=== PATIENT | male | born 1950 | race Caucasian/White ===

== ENCOUNTER → 2017-10-13 | Outpatient (CLI) | payer OTHER ==
--- NOTE | 2017-10-13 18:04 | CONS ---
CONSULTATION REASON FOR CONSULTATION: Sleep apnea. This is a pleasant 67-year-old male patient was sent over to [facility] to be worked up for sleep apnea. The patient has minimal soft snoring specially when he is on his back. He has been having chronic fatigue and muscle pain during the day. He thinks his sleep fragmentation is essentially related to pain. The patient is being worked up for fibromyalgia and has chronic body aches involving the large joints, neck and back. He wakes up constantly in the middle of the night due to pain. He sleeps better if he takes Tylenol arthritis. He is waking up tired during the day. He goes to bed around 8:30 p.m. and wakes up at 4 a.m. in the morning. He averages 4 to 5 hours of sleep. At times, he gets up in the middle of night to go to the bathroom. No grinding of the teeth. No restlessness in the lower extremities. No gasping for air. No witnessed apneas. No alcohol, no substance abuse. No head trauma. Crowder score is at 3. No falling asleep while driving or operating vehicles. He has been losing weight and has lost approximately 20 pounds since assisted. PAST MEDICAL HISTORY: 1. Chronic pain, under investigation. Possible fibromyalgia. 2. Hypertension. 3. Gout. 4. Hyperlipidemia. 5. Acid reflux. 6. Anxiety. PAST SURGICAL HISTORY: Includes tonsillectomy. DRUG ALLERGIES: Not known. He is allergic to DUST AND POLLEN AND MOLD. MEDICATIONS: 1. Xanax 0.25 mg on a p.r.n. basis. 2. Lisinopril 20 mg p.o. daily. 3. Ultram 50 mg as needed for pain control every 8 hours. 4. Allopurinol 100 mg p.o. daily. 5. Norvasc 2.5 mg p.o. daily. 6. Nexium 40 mg p.o. daily. 7. Crestor 10 mg p.o. daily. 8. Flonase as needed. 9. Multivitamin. SOCIAL HISTORY: The patient is a nonsmoker. No history of alcohol, no history of IV drugs. He is retired. FAMILY HISTORY: Negative for sleep apnea. REVIEW OF SYSTEMS: 12-point review of system was done. Positive findings are mentioned above in the history of present illness. No history of insomnia. No history of choking or gasping sensation. No grinding of the teeth. No sleepwalking or dry mouth. No anxiety or panic attacks. No palpitation. No claustrophobia. No sexual dysfunction. No depression. No problems with memory and concentration. PHYSICAL EXAMINATION: BP is 146/82, pulse 82, respirations 16, temperature 97.9 saturation 96% on room air. Weight is 217, height is 5 feet 11 inches, neck size 16-1/2 inches, BMI 29.8. GENERAL APPEARANCE: Calm, comfortable, in no distress. HEAD: Atraumatic, normocephalic. NECK: Supple. There is no JVD. No goiter or neck masses. There is crowding of posterior pharynx with a Mallampati class IV. LUNGS: Clear to auscultation. HEART: Sounds regular rhythm. Normal S1, S2. No S3, S4. No murmurs. ABDOMEN: Soft, nontender. No organomegaly. EXTREMITIES: No edema. No cyanosis or clubbing. NEUROLOGIC: A and O x3. No focal neurological deficits. PSYCHIATRIC: No anxiety or depression. SKIN: Negative for wounds also ulceration. IMPRESSION: 1. Obstructive sleep apnea clinically suspected although my overall suspicion for symptomatic obstructive sleep apnea is low and the patient's sleep fragmentation probably related to chronic arthritic pain. 2. Hypertension. 3. Gout. 4. Hyperlipidemia. 5. Acid reflux. 6. Anxiety. PLAN: Proceed with a home sleep study and decide on treatment accordingly. MMODL / IJN: [id number] /
== END | disposition home or self-care (01) ==
LOC: SLEEP 16:44
PROVIDERS: ATTEND Internal Medicine Critical Care Medicine
DX: I10 Essential (primary) hypertension (principal); M10.9 Gout, unspecified; E78.5 Hyperlipidemia, unspecified; K21.9 Gastro-esophageal reflux disease without esophagitis; F41.9 Anxiety disorder, unspecified; Z79.899 Other long term (current) drug therapy; Z91.09 Other allergy status, other than to drugs and biological substances
CPT/HCPCS: 99211

== ENCOUNTER → 2018-01-12 | Outpatient (CLI) | payer OTHER ==
--- NOTE | 2018-01-12 16:51 | PN ---
PROGRESS NOTE This 67-year-old male patient was referred to me for sleep apnea evaluation. Today, he is coming in to discuss the results of the home sleep study that was conducted on 10/26/2017. In summary the patient was found to have mild OLIVIA with an AHI of 7 and disease was worse in the supine body position. Nevertheless, he claims that he does not sleep on his back. His sleep is fragmented as the patient has chronic pain related to fibromyalgia. He cannot get himself in a comfortable situation. He uses Tylenol arthritis for pain control. His [place] score is only at 3. He snores. However, his snoring is very soft. He did not demonstrate significant nocturnal oxygen desaturation on his home sleep study. PHYSICAL EXAMINATION: BP is 142/81, pulse 88, respirations 16, temperature 98.3 saturation 97% on room air. Weight is 215, height 5 feet 11 inches. General appearance calm and comfortable. Head is atraumatic, normocephalic. NECK: Supple. There is no significant crowding of the posterior pharynx. No goiter or neck masses. LUNGS: Clear to auscultation. HEART: Sounds regular rate and rhythm. Normal S1, S2. No S3, S4. No murmurs. ABDOMEN: Soft, nontender. No organomegaly. EXTREMITIES: No edema. No cyanosis or clubbing. SKIN: Negative for any wounds or ulcerations. NEUROLOGIC: A and O x3. No focal neurological deficits. Psychiatric: The patient has appropriate mood and affect. IMPRESSION: 1. Mild obstructive sleep apnea with an AHI of 7.7, positional worse in the supine body position. 2. Sleep fragmentation related to chronic pain/fibromyalgia. 3. No major hypersomnia. [place] Score is at 4. 4. Hypertension. 5. Gout. 6. Hyperlipidemia. 7. Acid reflux. 8. Generalized anxiety disorder. PLAN: I had a lengthy discussion with the patient. I went over the treatment of mild obstructive sleep apnea including oral appliances and CPAP therapy. He is not interested in CPAP therapy at this point, knowing that he thinks his sleep fragmentation is essentially due to his chronic pain. I recommended him sleeping in a sidewise body position knowing that he has a positional worsening of his OLIVIA. I advised him to lose weight. I asked him to come back to the sleep Center if his condition gets worse. We will hold on CPAP therapy for the time being. Avoid muscle relaxants. Avoid alcoholic beverages. Implement good sleep hygiene measures. Contact me back in the sleep center if there is any worsening in his sleep quality. MAYA / LAURIEN: [id number] /
== END | disposition home or self-care (01) ==
LOC: SLEEP 14:57
PROVIDERS: ATTEND Internal Medicine Critical Care Medicine
DX: G47.33 Obstructive sleep apnea (adult) (pediatric) (principal); G89.29 Other chronic pain; M79.7 Fibromyalgia; I10 Essential (primary) hypertension; M10.9 Gout, unspecified; E78.5 Hyperlipidemia, unspecified; K21.9 Gastro-esophageal reflux disease without esophagitis; F41.1 Generalized anxiety disorder; Z79.891 Long term (current) use of opiate analgesic

== ENCOUNTER → 2018-08-31 | Outpatient (CLI) | payer OTHER ==
--- NOTE | 2018-08-31 19:51 | MR ---
EXAMINATION TYPE: MR lumbar spine wo con DATE OF EXAM: 08/31/2018 COMPARISON: None HISTORY: Radiculopathy TECHNIQUE: Multiplanar, multisequence images of the lumbar spine were acquired. L1-L2: Normal disc appearance without desiccation. No herniation, protrusion or disc bulging. No ca nal stenosis is present. Foramina are patent bilaterally. L2-L3: Normal disc appearance without desiccation. No herniation, protrusion or disc bulging. No ca nal stenosis is present. Foramina are patent bilaterally. L3-L4: Normal disc appearance without desiccation. No herniation, protrusion or disc bulging. No ca nal stenosis is present. Foramina are patent bilaterally. L4-L5: Right posterior paracentral disc herniation causes anterolateral mass effect on the thecal sac and encroaches on the lateral recess, disc material extends posterior to the L5 vertebral body and l ikely encroaches on the right L5 nerve root. Circumferential extension of endplate disc complex encro aches on the bilateral foramina right greater than left. There is loss of disc height and signal comp atible disc desiccation and degenerative disc disease, endplate discogenic marrow signal change. Face t arthropathy with hypertrophy of ligamentum flavum causes posterior lateral mass effect on the theca l sac. L5-S1: There is loss of disc height and signal due to disc desiccation and degenerative disc disease, vacuum phenomenon is present, there is endplate discogenic marrow signal change, spondylosis. Side Framer ior disc bulge, endplate disc complex contacts anterior thecal sac, possibly the proximal S1 nerve ro ots, circumferential extension of endplate disc complex encroaches on the foramina right greater than left. There is facet arthropathy change present. Lumbar segments are intact. No paraspinal masses are identified. Conus medullaris has a normal appe arance. IMPRESSION: Sizable disc herniation with extension of disc material posterior to the L5 vertebral body from the L 4-5 disc space. Multilevel foraminal encroachment.
== END ==
LOC: RADMRIMAIN 05:55
PROVIDERS: ATTEND Physician Assistant Medical
DX: M51.16 Intervertebral disc disorders with radiculopathy, lumbar region (principal)
CPT/HCPCS: 72148